=== PATIENT | female | born 1995 ===

== ENCOUNTER 2018-07-14 08:52 | Emergency (ER) | payer OTHER ==
[~2018-07-14] VITALS: Ht 162.6 cm; Wt 79.4 kg
== END 2018-07-14 12:54 | disposition home or self-care (01) ==
LOC: ER 08:52
DX: O26.891 Other specified pregnancy related conditions, first trimester (principal); R10.13 Epigastric pain; Z34.02 Encounter for supervision of normal first pregnancy, second trimester